=== PATIENT | female | born 1980 | race Caucasian/White ===

== ENCOUNTER 2017-06-04 09:23 | Emergency (ER) | payer OTHER, MEDICAID ==
[~2017-06-04] VITALS: Ht 180.3 cm; Wt 79.4 kg
[~2017-06-04 09:23] MED LIST: AMOXICILLIN 50500 MG PO; BACTRIM DS TAB1 EACH PO; HYDROCODON-ACE1 EAC7 PO; HYDROCODONE-AP1 EAC6 PO; IBUPROFEN 600600 M1 PO; IBUPROFEN 800800 M1 PO; KEFLEX500 MG PO; LIDOCAINE VISC100 M1 SWISH&SPIT; PENICILLIN V P500 MG PO; PREDNISONE 20 M20 MG PO; PYRIDIUM200 MG PO; TRAMADOL 50 MG50 MG PO
[2017-06-04 09:44] LABS: URINE BILIRUBIN 1+ (Negative); URINE BLOOD 3+ (Negative); URINE COLOR DARK YELLOW; URINE GLUCOSE-RANDOM NEGATIVE (Negative); URINE KETONES 1+ (Negative); URINE LEUKOCYTES-REFLEX 2+ (Negative); URINE NITRITE-REFLEX POSITIVE (Negative); URINE PROTEIN 3+ (Negative); URINE SPECIFIC GRAVITY >= 1.030 (1.005-1.030)
[2017-06-04 09:45] LABS: URINE CLARITY CLOUDY
[2017-06-04 09:47] LABS: ICTOTEST (BILI CONFIRMATORY) Positive (Negative)
[2017-06-04 10:07] LABS: CASTS None Seen /LPF (None Seen); CRYSTALS None Seen /LPF (None Seen); SQUAMOUS 0-3 Few /LPF (0-3); URINE WBC-REFLEX >25 Many /HPF (0-5)
[2017-06-04] MEDS ORDERED: BACTRIM DS TAB1 EACH PO (10:19)
[2017-06-04 10:42] VITALS: BP 114/69
== END 2017-06-04 10:43 | disposition home or self-care (01) ==
LOC: M.ERS 09:23
PROVIDERS: Personal Emergency Response Attendant
DX: N30.01 Acute cystitis with hematuria (principal); Z87.440 Personal history of urinary (tract) infections; Z96.0 Presence of urogenital implants; Z98.890 Other specified postprocedural states; Z90.89 Acquired absence of other organs; Z88.1 Allergy status to other antibiotic agents

== ENCOUNTER 2017-06-11 12:09 | Emergency (ER) | payer OTHER, MEDICAID ==
[~2017-06-11] VITALS: Ht 180.3 cm; Wt 72.6 kg
[2017-06-11 13:57] VITALS: BP 120/75
== END 2017-06-11 13:58 | disposition home or self-care (01) ==
LOC: M.ERS 12:09
DX: S80.02XA Contusion of left knee, initial encounter (principal); Z98.890 Other specified postprocedural states; Z88.1 Allergy status to other antibiotic agents; W10.9XXA Fall (on) (from) unspecified stairs and steps, initial encounter; Y93.89 Activity, other specified; Y92.098 Other place in other non-institutional residence as the place of occurrence of the external cause; Y99.8 Other external cause status

== ENCOUNTER 2017-06-28 17:59 | Emergency (ER) | payer OTHER, MEDICAID ==
[~2017-06-28] VITALS: Ht 180.3 cm; Wt 72.6 kg
[2017-06-28 18:46] VITALS: BP 138/78
== END 2017-06-28 18:47 | disposition home or self-care (01) ==
LOC: M.ERS 17:59
DX: S60.221A Contusion of right hand, initial encounter (principal); Z88.5 Allergy status to narcotic agent; Z88.1 Allergy status to other antibiotic agents; W22.8XXA Striking against or struck by other objects, initial encounter; Y93.89 Activity, other specified; Y92.89 Other specified places as the place of occurrence of the external cause; Y99.8 Other external cause status

== ENCOUNTER 2017-09-14 13:39 | Emergency (ER) | payer OTHER, MEDICAID ==
[~2017-09-14] VITALS: Ht 180.3 cm; Wt 79.4 kg
[2017-09-14 13:58] LABS: URINE BILIRUBIN NEGATIVE (Negative); URINE BLOOD 1+ (Negative); URINE CLARITY CLEAR; URINE COLOR YELLOW; URINE GLUCOSE-RANDOM NEGATIVE (Negative); URINE KETONES NEGATIVE (Negative); URINE LEUKOCYTES-REFLEX 1+ (Negative); URINE NITRITE-REFLEX NEGATIVE (Negative); URINE PROTEIN NEGATIVE (Negative); URINE SPECIFIC GRAVITY <= 1.005 (1.005-1.030); URINE UROBILINOGEN 0.2 E.U./dl (0.2-1.0)
[2017-09-14 14:11] LABS: SQUAMOUS >10 Many /LPF (0-3)
[2017-09-14 14:12] LABS: BACTERIA-REFLEX 1-9 Few /HPF (None Seen); CASTS None Seen /LPF (None Seen); CRYSTALS None Seen /LPF (None Seen); URINE RBC 0-2 Rare /HPF (0-2); URINE WBC-REFLEX 6-15 Few /HPF (0-5)
[2017-09-14] MEDS ORDERED: BACTRIM DS TAB1 EACH PO (14:24)
[2017-09-14 14:35] VITALS: BP 108/51
== END 2017-09-14 14:37 | disposition home or self-care (01) ==
LOC: M.ERS 13:39
PROVIDERS: Nurse Practitioner Family
DX: N39.0 Urinary tract infection, site not specified (principal); Z87.440 Personal history of urinary (tract) infections; Z90.89 Acquired absence of other organs; Z98.890 Other specified postprocedural states; Z88.1 Allergy status to other antibiotic agents; Z88.6 Allergy status to analgesic agent

== ENCOUNTER 2017-10-08 16:15 | Emergency (ER) | payer OTHER, MEDICAID ==
[~2017-10-08] VITALS: Ht 180.3 cm; Wt 77.1 kg
[2017-10-08 16:23] VITALS: BP 136/53
[2017-10-08] MEDS ORDERED: KEFLEX500 M1 PO (17:18)
== END 2017-10-08 17:28 | disposition home or self-care (01) ==
LOC: M.ERS 16:15
DX: S99.822A Other specified injuries of left foot, initial encounter (principal); W01.0XXA Fall on same level from slipping, tripping and stumbling without subsequent striking against object, initial encounter; Y93.89 Activity, other specified; Y92.89 Other specified places as the place of occurrence of the external cause; Y99.8 Other external cause status; Z88.1 Allergy status to other antibiotic agents; Z88.6 Allergy status to analgesic agent

== ENCOUNTER 2018-05-11 10:11 | Emergency (ER) | payer OTHER ==
[~2018-05-11] VITALS: Ht 180.3 cm; Wt 74.8 kg
[~2018-05-11 10:11] MED LIST changes: +KEFLEX500 M1 PO
[2018-05-11 10:48] LABS: ABSOLUTE EOSINOPHILS 0.1 thou/uL (0.0-0.7); ABSOLUTE LYMPHOCYTES 2.1 thou/uL (0.8-5.3); ABSOLUTE MONOCYTES 0.8 thou/uL (0.0-1.2); ABSOLUTE NEUTROPHILS 7.9 thou/uL (1.6-8.1); BASOPHILS 0.5 %; EOSINOPHILS 1.4 %; HEMATOCRIT 40.4 % (37.0-47.0); HEMOGLOBIN 13.2 gm/dL (12.0-15.0); LYMPHOCYTES 19.2 %; MCHC 32.8 g/dL (28.0-37.0); MCV 79.4 fL (80.0-100.0); MONOCYTES 7.1 %; MPV 7.1 fl. (7.2-11.1); NUCLEATED RBCS 0 /100WBC; PLATELET COUNT* 281 thou/uL (150-400); POLYS 71.8 %; RBC 5.08 mil/uL (4.20-5.00); RDW-CV 14.8 % (10.5-14.5); WBC 10.9 thou/uL (4.0-11.0)
[2018-05-11 10:49] LABS: URINE BILIRUBIN NEGATIVE (Negative); URINE BLOOD 3+ (Negative); URINE CLARITY CLEAR; URINE COLOR YELLOW; URINE GLUCOSE-RANDOM NEGATIVE (Negative); URINE KETONES NEGATIVE (Negative); URINE PROTEIN 3+ (Negative); URINE SPECIFIC GRAVITY 1.015 (1.005-1.030); URINE UROBILINOGEN 0.2 E.U./dl (0.2-1.0)
[2018-05-11 10:50] LABS: URINE LEUKOCYTES-REFLEX 2+ (Negative); URINE NITRITE-REFLEX POSITIVE (Negative)
[2018-05-11 10:55] LABS: CALCIUM 8.8 mg/dL (8.5-10.1); POTASSIUM 3.8 mmol/L (3.5-5.1)
[2018-05-11 11:00] LABS: ALBUMIN 3.3 g/dL (3.4-5.0); TOTAL BILIRUBIN 0.8 mg/dL (<0.1-1.0); TOTAL PROTEIN 6.4 g/dL (6.4-8.2)
[2018-05-11 11:01] LABS: CASTS None Seen /LPF (None Seen); CRYSTALS None Seen /LPF (None Seen); MUCUS 0-3 Light strn/LPF (None Seen); SQUAMOUS 0-3 Few /LPF (0-3); URINE RBC 3-10 Few /HPF (0-2)
[2018-05-11] MEDS ORDERED: BACTRIM DS TAB1 EACH PO (11:07)
[2018-05-11] MEDS ORDERED: PHENAZOPYRIDIN200 M2 PO (11:07)
[2018-05-11] MEDS ORDERED: ACETAMINOPHEN-1 EAC1 PO (11:07)
[2018-05-11 11:22] VITALS: BP 130/85
== END 2018-05-11 11:23 | disposition home or self-care (01) ==
LOC: M.ERS 10:11
PROVIDERS: Physician Assistant
DX: N39.0 Urinary tract infection, site not specified (principal); Z88.6 Allergy status to analgesic agent; Z88.1 Allergy status to other antibiotic agents; Z87.440 Personal history of urinary (tract) infections; Z98.890 Other specified postprocedural states

== ENCOUNTER 2019-05-14 08:41 | Emergency (ER) | payer OTHER, MEDICAID ==
[~2019-05-14] VITALS: Ht 180.3 cm; Wt 86.2 kg
[~2019-05-14 08:41] MED LIST changes: +ACETAMINOPHEN-1 EAC1 PO; +PHENAZOPYRIDIN200 M2 PO
[2019-05-14 08:51] VITALS: BP 121/78
[2019-05-14] MEDS ORDERED: ENBRACE HR SOF1 EACH PO (08:59)
[2019-05-14] MEDS ORDERED: AUGMENTIN 875-1 EACH PO (09:03)
== END 2019-05-14 09:13 | disposition home or self-care (01) ==
LOC: M.ERS 08:41
DX: O99.513 Diseases of the respiratory system complicating pregnancy, third trimester (principal); Z88.6 Allergy status to analgesic agent; Z88.1 Allergy status to other antibiotic agents; O23.43 Unspecified infection of urinary tract in pregnancy, third trimester; Z90.89 Acquired absence of other organs; Z98.890 Other specified postprocedural states; Z3A.38 38 weeks gestation of pregnancy

== ENCOUNTER 2021-01-27 07:53 | Emergency (ER) | payer OTHER, MEDICAID ==
[~2021-01-27] VITALS: Ht 180.3 cm; Wt 77.1 kg
[~2021-01-27 07:53] MED LIST changes: +AUGMENTIN 875-1 EACH PO; +ENBRACE HR SOF1 EACH PO
[2021-01-27 08:41] LABS: ABSOLUTE EOSINOPHILS 0.2 thou/uL (0.0-0.7); ABSOLUTE LYMPHOCYTES 1.2 thou/uL (0.8-5.3); ABSOLUTE MONOCYTES 0.7 thou/uL (0.0-1.2); ABSOLUTE NEUTROPHILS 6.5 thou/uL (1.6-8.1); BASOPHILS 0.3 %; EOSINOPHILS 2.4 %; HEMATOCRIT 37.3 % (37.0-47.0); HEMOGLOBIN 12.5 gm/dL (12.0-15.0); LYMPHOCYTES 13.7 %; MCH 27.3 pg (26.0-34.0); MCHC 33.5 g/dL (28.0-37.0); MCV 81.6 fL (80.0-100.0); MPV 7.1 fl. (7.2-11.1); NUCLEATED RBCS 0 /100WBC; PLATELET COUNT* 223 thou/uL (150-400); POLYS 75.6 %; RBC 4.57 mil/uL (4.20-5.00); RDW-CV 14.7 % (10.5-14.5); WBC 8.6 thou/uL (4.0-11.0)
[2021-01-27 08:52] LABS: CALCIUM 9.1 mg/dL (8.5-10.1); CREATININE 0.8 mg/dL (0.6-1.3)
[2021-01-27 08:56] LABS: ALBUMIN 3.8 g/dL (3.4-5.0); TOTAL BILIRUBIN 0.5 mg/dL (<0.1-1.0); TOTAL PROTEIN 6.9 g/dL (6.4-8.2)
[2021-01-27] MEDS ORDERED: PREDNISONE 20 M20 M1 PO (09:12)
[2021-01-27] MEDS ORDERED: PROAIR HFA8.5 GM INH (09:12)
[2021-01-27 09:24] VITALS: BP 123/73
--- NOTE | 2021-01-27 13:25 | EKG ---
[place] [address] ELECTROCARDIOGRAM REPORT Name: LAURA DENG Room: [facility]#: [id number] Admission: 01/27/21 Attend Phys: Discharge: 01/27/21 Date of : 82 Date of Service: 01/27/21 0755 Report #: [id number] THIS REPORT FOR: //name// [facility] ED Test Date: 2021-01-27 Test Time: 07:55:45 Pat Name: LAURA DENG Department: Room: Gender: F Drafter Apprentice: TOMASA : 1980 Requested By: Kenneth Magallon Order Number: [id number] MD: Skip Chappell Measurements Intervals [place] Rate: 79 P: 13 NH: 131 QRS: 38 QRSD: 102 T: 53 QT: 395 QTc: 453 Interpretive Statements Sinus rhythm Baseline wander in lead(s) II,aVF,V2 Compared to ECG 10/10/2014 04:07:31 Ventricular premature complex(es) no longer present Electronically Signed On 01-27-2021 13:25:26 CDT by Skip Chappell [email or web address] <ELECTRONICALLY SIGNED> By: Skip Chappell MD, [facility] 01/27/21 1325 0755 0755 Skip Chappell MD, [facility] /EPI
== END 2021-01-27 09:24 | disposition home or self-care (01) ==
LOC: M.ERS 07:53
PROVIDERS: Emergency Medicine
DX: R06.2 Wheezing (principal); Z20.822 Contact with and (suspected) exposure to COVID-19; Z90.89 Acquired absence of other organs; Z88.1 Allergy status to other antibiotic agents; Z88.5 Allergy status to narcotic agent